=== PATIENT | female | born 1990 | race Caucasian/White ===

== ENCOUNTER 2021-10-22 05:23 | Emergency (ER) | payer MEDICAID, SELFPAY ==
[2021-10-22 05:35] VITALS: BP 155/98; PULSE 75; RESP 17; TEMP 36.7; O2SAT 98; BMI 29.2
--- NOTE | 2021-10-22 06:05 | HMH.EDDENT ---
ED Disposition Clinical Impression: Pain, dental Disposition: Home, Self-Care Condition on Discharge: Good Instructions: DI for Dental Pain Additional Instructions: see pcp or dentist Prescriptions: clindamycin HCL [Clindamycin HCl] 300 mg PO TID #21 cap Transmission Status: Pending to [facility] Referrals: Jesus Dumont DO [Primary Care Provider] - - Critical Care Critical Care Time: No Attestation: On 10/22/21, the high probability of a clinically significant, sudden or life threatening deterioration of the following system(s) required my full and direct attention, intervention and personal management. The time I documented below is in addition to time spent performing reported procedures but includes the following listed in this critical care notation. Medical Decision Making - Medical Records Medical records reviewed: Yes: I reviewed the patient's medical records. - Juliocesar Inquiry Pt receiving controlled substance: No Vital Signs: 10/22/21 05:35 Temperature 98.1 F Temperature Source Oral Pulse Rate [Right Brachial] 75 Respiratory Rate 17 Blood Pressure [Right Arm] 155/98 H Blood Pressure Mean [Right Arm] 117 Blood Pressure Source [Right Arm] Automatic Cuff Blood Pressure Position [Right Arm] Sitting 02 Sat by Pulse Oximetry 98 Oxygen Delivery Method Room Air Orders (Tests/Meds): ED MEDICATIONS Discontinued Medications Generic Name Dose Route Start Last Admin Trade Name Freq PRN Reason Stop Dose Admin Benzocaine/Butamben/Tetracaine HCl 1 gm 10/22/21 05:42 10/22/21 05:44 Tetracaine/Benzocaine/Butamben 56 Gm [place] TP 10/22/21 05:43 1 gm ONCE ONE Administration Lidocaine HCl 15 ml 10/22/21 05:42 10/22/21 05:44 Lidocaine 2% Viscous Bel 15ml Udc PO 10/22/21 05:43 15 ml ONCE ONE Administration Medical Decision Narrative: will send abx and ask pt to see dentist Dental HPI - General Chief complaint: Dental/Oral Stated complaint: toothache Time Seen by Provider: 10/22/21 06:05 Mode of Arrival: Family Vehicle Source of Information: Patient, Medical Record Limitations: No Limitations Description of Symptoms (Recalled from ER Triage Doc. by RN): right side jaw discomfort from broken tooth; missed her dentist appointment secondary to a in the family - History of Present Illness HPI Narrative: rt lower tooth pain with element of gingival swelling MD Complaint: tooth pain Onset (ago): day(s) Severity: moderate Treatment prior to arrival: none - Related Data Previous Rx's Medication Instructions Recorded clindamycin HCL [Clindamycin HCl] 300 mg PO TID #21 cap 10/22/21 Allergies Allergy/AdvReac Type Severity Reaction Status Date / Time No Known Allergies Allergy Verified 10/22/21 05:40 [facility] History - Hepatitis A Screen Attestation statement:: This patient has been screened for Hepatitis A risk factors. I have reviewed the patient's past medical history: Yes ROS Obtained: Yes All systems reviewed & no additional complaints - Constitutional Constitutional: Denies fever(s) - Eyes Eyes: Denies change in vision - ENT Ears, Nose, Mouth, and Throat: Reports as per HPI, Reports dental pain - Cardiovascular Cardiovascular: Denies chest pain - Respiratory Respiratory: Denies shortness of breath - Gastrointestinal Gastrointestingal: Denies: abdominal pain - Genitourinary Female Genitourinary: Denies hematuria - Musculoskeletal Musculoskeletal: Denies joint pain - Integumentary/Breasts Skin/Breast: Denies rash - Neurologic Neurologic: Denies focal weakness Physical Exam - General General appearance: alert - Head Head exam: normocephalic - Eye Eye exam: Present: PERRL, EOMI - ENT ENT exam: Present: mucous membranes moist - Expanded ENT Exam Teeth exam: Present: gingival swelling - Neck Neck exam: Present: full ROM - Respiratory Respiratory exam: Absent: respiratory distr
[2021-10-22 06:10] VITALS: BP 149/72; PULSE 79; RESP 19; TEMP 36.7; O2SAT 98
== END 2021-10-22 06:16 | disposition home or self-care (01) ==
PROVIDERS: Emergency Provider Emergency Medicine; PCP Family Medicine
DX: K08.89 Other specified disorders of teeth and supporting structures (principal)
CPT/HCPCS: 99283

== ENCOUNTER 2022-08-12 21:40 | Emergency (ER) | payer MEDICAID, SELFPAY ==
[2022-08-12 21:41] VITALS: BP 108/80; PULSE 99; RESP 18; TEMP 36.8; O2SAT 100; BMI 32.8
[2022-08-12 21:49] VITALS: BP 108/80; PULSE 96; O2SAT 99
[2022-08-12 22:29] LABS: Microscopic, Urine URINE MICROSCOPIC (MICROSCOPIC)
[2022-08-12 22:36] LABS: Appearance,Urine CLEAR (Clear); Bilirubin,Urine Negative (Negative); Blood, Urine 3+ (Negative); Color,Urine YELLOW (Yellow); Glucose,Urine (UA) Negative (Negative); Ketones,Urine Negative (Negative); Leukocyte Esterase,Urine TRACE (Negative); Nitrate,Urine Negative (Negative); Protein,Urine Negative (Negative); Specific Gravity, Urine 1.015 (1.005-1.030); Urobilinogen,Urine 0.2 EU/dl (0.2)
[2022-08-12 22:56] LABS: Urine Pregnancy, HCG Qual. Positive (Negative)
[2022-08-12 23:07] LABS: Basophils # 0.1 K/mm3 (0-0.2); Basophils % 1.2 % (0.1-2.0); Eosinophils # 0.2 K/mm3 (0.0-0.4); Eosinophils % 2.1 % (0.1-12.0); Hematocrit 44.6 % (37.0-47.0); Hemoglobin 14.4 g/dL (12.2-16.2); Lymphocytes # 2.6 K/mm3 (0.7-4.5); Lymphocytes % 23.7 % (10-50); Mean Corpuscular HGB Conc 32.2 g/dL (31.8-35.4); Mean Corpuscular Hemoglobin 28.7 pg (27.0-31.2); Mean Corpuscular Volume 89.3 fl (81-99); Mean Platelet Volume 7.5 fl (7.4-10.4); Monocytes # 0.5 K/mm3 (0.1-1.0); Monocytes % 4.8 % (1.7-9.3); Neutrophils # 7.5 K/mm3 (1.8-7.8); Neutrophils % 68.1 % (37.0-80.0); Platelet Count 374 K/mm3 (142-424); Red Blood Count 4.99 M/mm3 (4.20-5.40); Red Cell Distribution Width 13.4 % (11.5-17.5)
--- NOTE | 2022-08-12 23:07 | US_ITS ---
PROCEDURE INFORMATION: Exam: US , Transvaginal Exam date and time: 08/12/2022 11:29 PM Age: 32 years old Clinical indication: Lmp or gestational age (in weeks): 8w5d; Antepartum complications; Bleeding; ; Additional info: 10wk with vaginal bleeding, no u/s TECHNIQUE: Imaging protocol: Real-time transvaginal obstetrical ultrasound of the maternal pelvis with image documentation. Transvaginal imaging was used for better evaluation of the fetus, adnexa, and/or cervix. COMPARISON: No relevant prior studies available. FINDINGS: Gestation: Gestational sac has a somewhat flattened elongated irregular contour which is atypical. Pending miscarriage is a possibility. Mean sac diameter 0.83 cm, 5 weeks 3 days. Single pole visualized. Yolk sac was not definitively identified. No heart motions were documented. No M-mode Doppler imaging was provided. BIOMETRY: [place]-Rump length (CRL): [place]-rump length 4.42 cm, 5 weeks 6 days MATERNAL: Uterus: There is a broad scar in the low anterior uterine segment. Right ovary/adnexa: The right ovary measures 2.9 x 1.4 x 2.1 cm, volume 4.3 mL. Normal grayscale appearance. Color flow documented. Spectral venous waveforms documented. Left ovary/adnexa: Left ovary measures 2.2 x 2.1 x 2.7 cm, volume 6.9 mL. Normal grayscale appearance. Color flow documented. Spectral arterial and venous waveforms documented. Intraperitoneal space: No free fluid. Soft tissues: There is an intrauterine gestational sac visualized in the endometrial cavity immediately adjacent to the scar although it does not project into the scar defect itself. The position is marginal for scar ectopic . IMPRESSION: 1. Intrauterine gestational sac visualized containing a single pole but no discernible yolk sac, with crown-rump length corresponding to estimated gestational age of 5 weeks 6 days. 2. heart motions were not documented, and no M-mode Doppler images were provided. Technologist note indicates that they could not confirm viability. 3. The gestational sac has an irregular somewhat flattened contour and relatively low-lying positioned in the endometrial cavity, concerning for possible impending miscarriage. Recommend follow-up quantitative beta HCG assessment and short-term sonographic follow-up in 7-10 days. 4. If confirmed as a viable , its position is adjacent to the scar in the low anterior uterine segment although it does not lie directly within the scar defect. Short-term sonographic follow-up is recommended to confirm that this does not develop into a scar ectopic. 5. No intrapelvic free fluid. 6. The ovaries were unremarkable. 7. These findings initiated a critical results reporting process. An addendum will be issued at the time of clinician notification.
[2022-08-12 23:23] LABS: Anion Gap 10.6 mEq/L (5-15); Blood Urea Nitrogen 8 mg/dl (7-17); Calcium 8.9 mg/dl (8.4-10.2); Carbon Dioxide 25 mmol/L (22.0-30.0); Chloride 106 mmol/L (98-107); Creatinine Clearance Estimated 160 mL/min (50-200); Estimated Glomerular Filt Rate 115 ml/min (>60); GFR (African American) 139 ML/MIN (>60); Glucose 114 mg/dl (74-100); Potassium 3.6 mmoL/L (3.5-5.1); Sodium 138 mmol/L (136-145)
--- NOTE | 2022-08-12 23:25 | PC.NURSE ---
Pt to US at this time
[2022-08-12 23:32] LABS: Prothrombin Time 9.8 seconds (10.1-12.5)
[2022-08-12 23:33] LABS: Bacteria,Urine Trace /lpf; WBC,Urine Occasional #/hpf (0-3)
[2022-08-12 23:40] LABS: HCG,Quantitative 1252 mIU/ml (0-5.42)
--- NOTE | 2022-08-13 00:03 | PC.NURSE ---
s/w pharmacy technician per diem at this time for prelim report
--- NOTE | 2022-08-13 00:04 | PC.NURSE ---
pt back to bedside
--- NOTE | 2022-08-13 00:16 | PC.NURSE ---
at bedside s/w pt
[2022-08-13 00:18] VITALS: BP 124/78; PULSE 90; RESP 20; TEMP 36.8; O2SAT 19
--- NOTE | 2022-08-13 02:00 | HMH.EDGENADL ---
Discharge Plan Disposition Patient Disposition: Home, Self-Care Condition: Fair Prescriptions Prescriptions: No Action No Known Home Medications clindamycin HCl 300 MG capsule 300 mg PO TID Qty: 21 0RF Referrals Follow up/Referrals: Jesus Dumont DO [Primary Care Provider] - See instructions Clinical Impressions Clinical Impression: Vaginal bleeding Discharge ED Provider: Elpidio Bronson General Adult HPI General Chief complaint: Vaginal Bleeding Stated complaint: 10 weeks , bleeding Time Seen by Provider: 08/12/22 22:00 Mode of Arrival: Family Vehicle Source of Information: Patient Limitations: No Limitations Description of Symptoms (Recalled from ER Triage Doc. by RN): Pt c/o light pink spotting for 2 days while being 10 wk . She is /A1 4wk gestation. She does report that today she began to have low abd cramping and her breasts started to hurt real bad today. Pt's OBGYN is Dr. Chaitanya Espino in [place], [place] and she is scheduled to have her 1st u/s on Monday (08/15). Pt has a hx of pre-eclampsia and d/t this has hx of scheduled c-sections @ 26 wk x4. History of Present Illness HPI narrative: Patient presents for evaluation of spotting over the last 2 days with small clots being passed. Patient is a G6, P4 and reports she is about 10 weeks . She had an ultrasound scheduled for Monday, but as of yet has not had an ultrasound. She is unsure of her blood type. Past pregnancies have been sections. She reports some cramping pain today that is mild but tolerable which is why she comes in for evaluation. She had small episodes of spotting with her previous pregnancies, but this is more than her previous episodes. She has had a miscarriage in the past as well. Related Data Home Medications Medication Instructions Recorded Confirmed No Known Home Medications 02/08/21 02/08/21 Previous Rx's Medication Instructions Recorded clindamycin HCl 300 mg capsule 300 mg PO TID #21 caps 10/22/21 Allergies Allergy/AdvReac Type Severity Reaction Status Date / Time No Known Allergies Allergy Verified 12/29/21 14:59 [facility] Disclaimer: The information contained in this section may have been updated after the patient was seen, as this information can be updated by other users. Social History (System 12/29/21 @ 14:59 by Kali Arvizu) Smoking Status: Never smoker alcohol intake: never current occupational status: employed Travel in the last 8 weeks: None ROS Obtained: Yes Systems reviewed as appropriate & no additional complaints except as documented Physical Exam General General appearance: alert and in no apparent distress Head Head exam: atraumatic and normocephalic Eye Eye exam: Present normal appearance and PERRL ENT ENT exam: Present normal exam and normal oropharynx Neck Neck exam: Present normal inspection and full ROM Chest Chest inspection: Present symmetric chest wall rise Respiratory Respiratory exam: Present normal lung sounds bilaterally Cardiovascular Cardiovascular exam: Present regular rate and normal rhythm Abdominal Exam Abdominal exam: Present soft and tenderness Neurological Exam Neurological exam: Present alert and oriented X3 Skin Skin exam: Present warm and dry Medical Decision Making Juliocesar Inquiry Pt receiving controlled substance: No Vital Signs: 08/12/22 21:41 08/12/22 21:49 08/13/22 00:18 Temperature 98.3 F Temperature Source Oral Pulse Rate 96 H Pulse Rate [Right] 99 H Respiratory Rate 18 Blood Pressure 108/80 L Blood Pressure [Right Arm] 108/80 L Blood Pressure Mean [Right Arm] 89 Blood Pressure Source [Right Arm] Automatic Cuff 02 Sat by Pulse Oximetry 100 99 Oxygen Delivery Method Room Air Room Air Room Air 08/13/22 00:18 Temperature 98.2 F Temperature Source Pulse Rate 90 Pulse Rate [Right] Respiratory Rate 20 Blood Pressure 124/78 Blood Pre
== END 2022-08-13 00:23 | disposition home or self-care (01) ==
PROVIDERS: Emergency Provider Emergency Medicine; PCP Family Medicine
DX: O46.8X1 Other antepartum hemorrhage, first trimester (principal); Z3A.10 10 weeks gestation of pregnancy
CPT/HCPCS: 76817; 80048; 81001; 81025; 84702; 85025; 85610; 86850; 99285